=== PATIENT | female | born 1970 | race Caucasian/White ===

== ENCOUNTER 2022-05-11 08:00 | Outpatient (RCR) | payer BC, SELFPAY ==
--- NOTE | 2022-05-09 09:47 | ONC.NURNOTE ---
Authorization: User: Ada GonzalezJanie Justa Date: 04/08/22 14:35 Type: Eligibility Determination Note... Request received for authorization of [email or web address] [id number]. Patient carries [facility] as primary insurance. Per Availity no prior authorization is required. REf# [id number]
[2022-05-11 09:01] LABS: Basophils Percent Auto 1.5 % (0.0-3.0); Eosinophils Percent Auto 4.1 % (0.0-7.0); Hematocrit 40.9 % (33.0-51.0); Hemoglobin* 13.3 gm/dL (12.0-16.0); Lymphocytes Percent Auto 31.7 % (20-44); Mean Corpuscular HGB Conc 33 gm/dL (32-36); Mean Corpuscular Hemoglobin 31 pg (26-34); Mean Corpuscular Volume 95 fL (80-100); Monocytes Percent Auto 10.7 % (0.0-11.0); Platelet Count* 165 K/uL (140-440); RDW Coefficient of Variation % 12.6 % (11.5-15.5); White Blood Count* 2.71 K/uL (4.50-11.00)
[2022-05-11 09:03] LABS: Slide Review Reflex No
[2022-05-11 09:12] LABS: Albumin* 4.4 g/dL (3.3-5.0)
[2022-05-11 09:13] LABS: Chloride* 106 mmol/L (96-114); Sodium* 140 mmol/L (135-149)
[2022-05-11 09:15] LABS: Bilirubin Total* 0.4 mg/dL (0.1-1.5); Carbon Dioxide* 29 mmol/L (20-32); Creatinine* 1.1 mg/dL (0.5-1.5); Est. Creatinine Clearance* 57.52; Estimated Glomerular Filt Rate 60.08
[2022-05-11 09:16] LABS: Alanine Aminotransferase* 15 U/L (4-35); Alkaline Phosphatase* 68 U/L (40-150); Aspartate Amino Transferase* 28 U/L (12-35); Blood Urea Nitrogen* 20 mg/dL (7-30); Calcium* 9.7 mg/dL (8.4-10.6); Glucose* 72 mg/dL (60-115); Total Protein* 6.9 g/dL (6.0-8.3)
== END 2022-05-29 23:59 | disposition home or self-care (01) ==
LOC: CCIC 08:00
PROVIDERS: PCP Family Medicine; Visit Provider Physician Assistant
DX: Z51.89 Encounter for other specified aftercare (principal); C50.919 Malignant neoplasm of unspecified site of unspecified female breast; M54.50 Low back pain, unspecified
CPT/HCPCS: 36415; 80053; 85025; 97110; 97162

== ENCOUNTER 2022-06-14 14:40 | Outpatient (RCR) | payer BC, SELFPAY | END 2022-08-03 14:38 | disposition home or self-care (01) | PROVIDERS: PCP Family Medicine; Visit Provider Physician Assistant | DX: M54.50 Low back pain, unspecified (principal); Z51.89 Encounter for other specified aftercare | CPT/HCPCS: 97110; 97140 ==

== ENCOUNTER 2022-06-30 12:10 | Outpatient (CLI) | payer BC, SELFPAY ==
--- NOTE | 2022-06-30 16:15 | CRLHL7_ITS ---
For Patients: As a result of the Century Cures Act, medical imaging exams and procedure reports are released immediately into your electronic medical record. You may view this report before your referring provider. If you have questions, please contact your health care provider. INDICATION: Infiltrating lobular breast cancer TECHNIQUE: Following IV injection of FDG with uptake of 62 minutes, noncontrast CT scan followed by a PET scan were acquired along the length of body from the head to the upper thighs. Noncontrast CT was used for anatomic localization and photon attenuation correction of the PET-CT scan. - Blood glucose level: 82. - FDG dose (mCi): 13.23. COMPARISON: 12/30/2021 PET-CT. FINDINGS: Head/Neck: No abnormal tracer uptake. - Chest: No abnormal tracer uptake. - Background liver parenchyma with SUV mean of 2.3. No abnormal tracer uptake. - Musculoskeletal: No tracer avid bone lesion. - CT findings: Mastectomies with bilateral breast implants. No focal lung consolidation, pleural effusion, pneumothorax or suspicious lung mass. Last nodular opacity in the posterior right upper lobe measuring 7 mm. Uterus is absent or atrophic. Colonic diverticulosis. IMPRESSION : 1. Small ground-glass nodular opacity in the posterior right upper lobe measuring 7 mm. Recommend 6-12 month follow-up chest CT according to Fleischner guidelines. 2. Otherwise no evidence of tracer avid residual, recurrent or metastatic disease. Dictated by Tyree Barnard MD @ 07/06/2022 2:12:42 PM (Electronically Signed)
== END 2022-06-30 12:11 | disposition home or self-care (01) ==
LOC: RAD 12:11
PROVIDERS: PCP Family Medicine; Visit Provider Clinical Nurse Specialist
DX: C50.911 Malignant neoplasm of unspecified site of right female breast (principal); R91.8 Other nonspecific abnormal finding of lung field
CPT/HCPCS: 78815; A9552

== ENCOUNTER 2022-09-12 09:37 | Outpatient (CLI) | payer BC, SELFPAY ==
--- NOTE | 2022-09-12 09:15 | US_ITS ---
Final Report Patient: VANESA TINEO Facility:?[facility] Patient ID:?[id number] :?1970 Study:?US Breast Left -09/12/2022 10:02:57 AM Ordering Physician:Taya Snyder Final Report: LEFT BREAST ULTRASOUND CLINICAL HISTORY: LEFT breast lump. COMPARISON: CT-PET 06/30/2022, 08/26/2021, 12/30/2021, 11/05/2020, 03/12/2020. TECHNIQUE: Real-time ultrasound imaging of LEFT breast with imaging documentation. FINDINGS: Postop changes BILATERAL mastectomy with implant reconstruction. There is a solid hypoechoic nodule in the area of concern within the LEFT chest wall considered 5 o`clock 10 cm from the central breast. This is adjacent to the implant. In retrospect, this nodule has been present over the prior CT-PET exams but has increased in size since 2020. No abnormal metabolic activity. This likely represents scar tissue but because it is palpable a biopsy will be recommended. This measures 8 x 10 x 13 millimeters. IMPRESSION: Likely benign solid nodule adjacent to the LEFT implant measuring 8 x 10 x 13 millimeters, 5 o`clock 10 cm from the central breast. RECOMMENDATIONS: Ultrasound-guided core needle biopsy recommended. Results and recommendations were discussed with the patient at the time of the exam. BI-RADS Category 4: Suspicious A lay language report of this examination will be provided to the patient. Dictated by Tyree Ortiz MD @ 09/12/2022 1:46:54 PM maylin/Dictated by: Tyree Ortiz MD @ 09/12/2022 1:46:00 PM (Electronic Signature)
== END 2022-09-12 09:38 | disposition home or self-care (01) ==
LOC: US 09:37
PROVIDERS: PCP Family Medicine; Visit Provider Internal Medicine Hematology & Oncology
DX: N63.20 Unspecified lump in the left breast, unspecified quadrant (principal); N60.32 Fibrosclerosis of left breast
CPT/HCPCS: 76642

== ENCOUNTER 2022-09-13 09:04 | Outpatient (CLI) | payer BC, SELFPAY ==
--- NOTE | 2022-09-13 09:15 | CRLHL7_ITS ---
For Patients: As a result of the Century Cures Act, medical imaging exams and procedure reports are released immediately into your electronic medical record. You may view this report before your referring provider. If you have questions, please contact your health care provider. ULTRASOUND-GUIDED LEFT BREAST BIOPSY CLINICAL HISTORY: Status post BILATERAL mastectomy and implant reconstruction with palpable nodule adjacent to the LEFT implant. COMPARISON STUDIES: Ultrasound 09/12/2022. TECHNIQUE: Real-time ultrasound with image documentation was used for targeting the breast lesion. Core biopsy specimens were obtained using a [employer] device with a 14-gauge biopsy needle. CONSENT and TIME OUT: The procedure, risks, and alternatives were explained to the patient and a consent was signed. Mcconnell Protocol was followed including pre-procedure verification that relevant information/documentation was available, reviewed and properly matched to the patient; consent accurate and complete; and equipment and supplies available. Time Out was conducted just prior to starting procedure to verify the four required elements: patient identity, correct side/site marked (if applicable), procedure, relevant images/results properly labeled and displayed (if applicable). PROCEDURE: The patient was positioned supine on the ultrasound table. The breast was prepped with ChloraPrep. 8 cc of 1 percent lidocaine used for local anesthesia. Core samples were obtained. A sterile metal biopsy clip was placed percutaneously to tomasa the lesion position within the breast. The specimens were placed in 10% formalin and sent to the pathology department. Pressure was held on the biopsy site until all bleeding subsided. The skin incision was closed with Steri-Strips. An ice pack was positioned over the biopsy site. Post-biopsy instructions were reviewed with the patient, and a written copy was given to her. LATERALITY: LEFT breast. LESION: Hypoechoic solid nodule measuring 8 x 10 x 13 millimeters at 5 o`clock 10 cm from the nipple. SUSPICION FOR MALIGNANCY: Medium, probable scar tissue. No uptake on prior PET scans. NUMBER OF SAMPLES: 5. BIOPSY CLIP SHAPE: Ribbon. PROXIMITY OF CLIP TO TARGET: Within the lesion. IMPRESSION: Ultrasound-guided breast biopsy. When the pathology report is available, an addendum to this report will be made. 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 No evidence of malignancy. This is concordant. Surgical consultation may be useful. Dictated by Tyree Ortiz MD @ Sep 13 2022 11:45AM Signed by:?Tyree Ortiz MD @09/13/2022 12:36:20 PM (Electronically Signed)
== END 2022-09-13 09:05 | disposition home or self-care (01) ==
LOC: US 09:05
PROVIDERS: PCP Family Medicine; Visit Provider Internal Medicine Hematology & Oncology
DX: N63.20 Unspecified lump in the left breast, unspecified quadrant (principal); R92.8 Other abnormal and inconclusive findings on diagnostic imaging of breast
CPT/HCPCS: 19083; 88305; A4648; A4649

== ENCOUNTER 2022-10-05 14:30 | Outpatient (RCR) | payer BC, SELFPAY ==
[2022-06-08 09:08] LABS: Basophils Percent Auto 1.3 % (0.0-3.0); Eosinophils Percent Auto 3.7 % (0.0-7.0); Hemoglobin* 13.5 gm/dL (12.0-16.0); Immature Granulocytes Abs Auto 0.01 K/uL (0.00-0.30); Lymphocytes Percent Auto 31.6 % (20-44); Mean Corpuscular HGB Conc 33 gm/dL (32-36); Mean Corpuscular Hemoglobin 31 pg (26-34); Mean Corpuscular Volume 95 fL (80-100); Monocytes Percent Auto 6.7 % (0.0-11.0); Neutrophils Percent Auto 56.4 % (42.0-72.0); Platelet Count* 190 K/uL (140-440); RDW Coefficient of Variation % 12.4 % (11.5-15.5); Red Blood Count 4.31 m/uL (4.00-5.20); White Blood Count* 2.97 K/uL (4.50-11.00)
[2022-06-08 09:09] LABS: Albumin* 4.5 g/dL (3.3-5.0); Slide Review Reflex No
[2022-06-08 09:10] LABS: Chloride* 103 mmol/L (96-114); Potassium* 4.8 mmol/L (3.6-5.1); Sodium* 140 mmol/L (135-149)
[2022-06-08 09:12] LABS: Alkaline Phosphatase* 69 U/L (40-150); Aspartate Amino Transferase* 29 U/L (12-35); Bilirubin Total* 0.5 mg/dL (0.1-1.5); Blood Urea Nitrogen* 22 mg/dL (7-30); Carbon Dioxide* 32 mmol/L (20-32); Creatinine* 1.3 mg/dL (0.5-1.5); Estimated Glomerular Filt Rate 49 ml/min; Total Protein* 7.5 g/dL (6.0-8.3)
[2022-06-08 09:13] LABS: Alanine Aminotransferase* 14 U/L (4-35); Glucose* 89 mg/dL (60-115)
[2022-07-12 09:57] LABS: Basophils Percent Auto 0.9 % (0.0-3.0); Eosinophils Percent Auto 2.4 % (0.0-7.0); Hematocrit 39.4 % (33.0-51.0); Hemoglobin* 12.9 gm/dL (12.0-16.0); Lymphocytes Percent Auto 33.6 % (20-44); Mean Corpuscular HGB Conc 33 gm/dL (32-36); Mean Corpuscular Hemoglobin 32 pg (26-34); Mean Corpuscular Volume 97 fL (80-100); Monocytes Percent Auto 8.6 % (0.0-11.0); Neutrophils Percent Auto 54.5 % (42.0-72.0); Platelet Count* 171 K/uL (140-440); RDW Coefficient of Variation % 12.3 % (11.5-15.5); Red Blood Count 4.08 m/uL (4.00-5.20); White Blood Count* 3.39 K/uL (4.50-11.00)
[2022-07-12 10:14] LABS: Slide Review Reflex No
[2022-07-12 10:17] LABS: Albumin* 4.5 g/dL (3.3-5.0); Chloride* 103 mmol/L (96-114)
[2022-07-12 10:18] LABS: Potassium* 4.1 mmol/L (3.6-5.1); Sodium* 140 mmol/L (135-149)
[2022-07-12 10:20] LABS: Bilirubin Total* 0.4 mg/dL (0.1-1.5); Creatinine* 1.1 mg/dL (0.5-1.5); Estimated Glomerular Filt Rate 60 ml/min
[2022-07-12 10:21] LABS: Alanine Aminotransferase* 15 U/L (4-35); Alkaline Phosphatase* 65 U/L (40-150); Aspartate Amino Transferase* 31 U/L (12-35); Blood Urea Nitrogen* 17 mg/dL (7-30); Calcium* 9.8 mg/dL (8.4-10.6); Carbon Dioxide* 30 mmol/L (20-32); Glucose* 71 mg/dL (60-115); Total Protein* 7.2 g/dL (6.0-8.3)
[2022-07-13] MEDS: ZOLEDRONIC ACID 4 MG in 0.9 % SODIUM CHLORIDE 100 ml 100 ML 420 MG IVPB (09:30)
[2022-08-09 10:13] LABS: Basophils Percent Auto 0.8 % (0.0-3.0); Eosinophils Percent Auto 1.3 % (0.0-7.0); Hematocrit 40.9 % (33.0-51.0); Hemoglobin* 13.3 gm/dL (12.0-16.0); Immature Granulocytes Abs Auto 0.01 K/uL (0.00-0.30); Mean Corpuscular HGB Conc 33 gm/dL (32-36); Mean Corpuscular Hemoglobin 31 pg (26-34); Mean Corpuscular Volume 95 fL (80-100); Monocytes Percent Auto 6.8 % (0.0-11.0); Neutrophils Percent Auto 71.8 % (42.0-72.0); Platelet Count* 187 K/uL (140-440); RDW Coefficient of Variation % 12.2 % (11.5-15.5); White Blood Count* 3.84 K/uL (4.50-11.00)
[2022-08-09 10:26] LABS: Slide Review Reflex No
[2022-08-09 10:33] LABS: Albumin* 4.7 g/dL (3.3-5.0)
[2022-08-09 10:34] LABS: Chloride* 102 mmol/L (96-114); Potassium* 4.3 mmol/L (3.6-5.1); Sodium* 138 mmol/L (135-149)
[2022-08-09 10:36] LABS: Bilirubin Total* 0.5 mg/dL (0.1-1.5); Creatinine* 1.3 mg/dL (0.5-1.5); Estimated Glomerular Filt Rate 49 ml/min
[2022-08-09 10:37] LABS: Alanine Aminotransferase* 14 U/L (4-35); Alkaline Phosphatase* 72 U/L (40-150); Aspartate Amino Transferase* 29 U/L (12-35); Blood Urea Nitrogen* 19 mg/dL (7-30); Carbon Dioxide* 30 mmol/L (20-32); Glucose* 89 mg/dL (60-115); Total Protein* 7.3 g/dL (6.0-8.3)
[2022-09-07 08:40] LABS: Basophils Percent Auto 1.1 % (0.0-3.0); Eosinophils Percent Auto 2.5 % (0.0-7.0); Hematocrit 41.7 % (33.0-51.0); Hemoglobin* 13.7 gm/dL (12.0-16.0); Lymphocytes Percent Auto 23.3 % (20-44); Mean Corpuscular HGB Conc 33 gm/dL (32-36); Mean Corpuscular Hemoglobin 31 pg (26-34); Mean Corpuscular Volume 95 fL (80-100); Monocytes Percent Auto 8.4 % (0.0-11.0); Neutrophils Percent Auto 64.7 % (42.0-72.0); Platelet Count* 179 K/uL (140-440); Red Blood Count 4.38 m/uL (4.00-5.20); White Blood Count* 2.75 K/uL (4.50-11.00)
[2022-09-07 08:44] LABS: Slide Review Reflex No
[2022-09-07 08:51] LABS: Albumin* 4.6 g/dL (3.3-5.0); Chloride* 103 mmol/L (96-114); Potassium* 4.7 mmol/L (3.6-5.1); Sodium* 137 mmol/L (135-149)
[2022-09-07 08:53] LABS: Creatinine* 0.9 mg/dL (0.5-1.5); Estimated Glomerular Filt Rate 76 ml/min
[2022-09-07 08:54] LABS: Alanine Aminotransferase* 26 U/L (4-35); Alkaline Phosphatase* 66 U/L (40-150); Aspartate Amino Transferase* 38 U/L (12-35); Bilirubin Total* 0.4 mg/dL (0.1-1.5); Blood Urea Nitrogen* 17 mg/dL (7-30); Calcium* 9.1 mg/dL (8.4-10.6); Carbon Dioxide* 27 mmol/L (20-32); Glucose* 112 mg/dL (60-115); Total Protein* 7.3 g/dL (6.0-8.3)
[2022-10-05 14:52] VITALS: BP 117/70; PULSE 81; RESP 16; TEMP 36.6; O2SAT 96
[2022-10-05] MEDS: ZOLEDRONIC ACID 4 MG in 0.9 % SODIUM CHLORIDE 100 ml 100 ML 420 MG IVPB (16:00)
--- NOTE | 2022-10-05 16:35 | ONC.NURNOTE ---
1450 assessed pt on arrival while NSG asst was taking VS. Called for medication. at 1500. med still not here at 1530. Pt angry and stated she needs to be in xray at 1530. appoligized to pt and had her return after xray. pt better after returning. Lucita started IV while I scanned and then hung Zometa at 1600. Pt discharged at 1627.
== END 2022-12-05 23:59 | disposition home or self-care (01) ==
LOC: CCIC 14:30
PROVIDERS: PCP Family Medicine; Referring Provider Family Medicine; Visit Provider Internal Medicine Hematology & Oncology
DX: C50.911 Malignant neoplasm of unspecified site of right female breast (principal); Z17.0 Estrogen receptor positive status [ER+]; Z79.811 Long term (current) use of aromatase inhibitors
CPT/HCPCS: 36415; 80053; 85025; 96374; 99212; 99214; 99215; J3489

== ENCOUNTER 2022-10-05 14:40 | Outpatient (CLI) | payer BC, SELFPAY ==
--- NOTE | 2022-10-05 15:30 | CRLHL7_ITS ---
For Patients: As a result of the Century Cures Act, medical imaging exams and procedure reports are released immediately into your electronic medical record. You may view this report before your referring provider. If you have questions, please contact your health care provider. DXA BONE MINERAL DENSITY STUDY Current height (in): 67.0. Weight (lb): 150.0. Menopause age: Not provided. Ethnicity: White. Reason for exam: Breast cancer. 1. Have you had a previous hip or vertebral fracture? No. 2. Have you had any fractures during your adult life which did not result from significant trauma (e.g., auto accident)? No. 3. Did either of your parents have a hip fracture? No. 4. Do you smoke? No. 5. Have you ever taken Glucocorticoids? No. 6. Do you have rheumatoid arthritis? No. 7. Do you have secondary osteoporosis? No. 8. Do you drink 3 or more alcoholic drinks per day? No. 9. Are you being treated for osteoporosis? No. 10. Have you ever taken any of the following medications: Actonel, Evista, Fosamax, Miacalcin, Reclast, Boniva, Forteo, HRT (i.e. estrogen/hormone therapy), Protelos, Prolia, Vitamin D, Calcium, other ??? please specify. ANSWER: Yes, vitamin D, calcium, HRT. 11. Do you have any of the following medical conditions: Anorexia or bulimia, asthma or emphysema, end stage renal disease, hyperparathyroidism, any seizure disorders, cancer, inflammatory bowel diseases, hysterectomy, other ??? please specify. ANSWER: Yes, cancer, hysterectomy. 12. What was your maximum height (inches)? 67. 13. Do you perform weight bearing exercise regularly? No. 14. Do you regularly consume dairy products? Yes. 15. Do you drink caffeinated beverages? Yes. If female: 16. At what age did your period start? 12. 17. Are you premenopausal? No. 18. How many full term pregnancies have you had? 2. 19. Have you ever missed your period for more than 6 months in a row (not including or menopause)? No. TECHNIQUE: Bone mineral density study was performed using the [employer]. FINDINGS: The results of the study expressed as bone mineral density (BMD) are as follows: Lumbar spine L1 to L3: BMD: 1.100 g/cm2. T-score: 0.7. Z-score: 1.7. Neck Left: BMD: 0.754 g/cm2. T-score: -0.9. Z-score: 0.1. Right: BMD: 0.779 g/cm2. T-score: -0.6. Z-score: 0.3. Total Left: BMD: 0.961 g/cm2. T-score: 0.2. Z-score: 0.8. Right: BMD: 0.923 g/cm2. T-score: -0.2. Z-score: 0.4. IMPRESSION: Normal bone density. *Comparison exams done prior to 03/2020 were performed on different unit, [employer]. COMPARISON: Compared with scan of 04/29/2020, the bone mineral density has increased by 6.1 percent at the spine and increased by 1.5percent at the hip. Tyree Ortiz M.D. Diagnostic Radiologist [email or web address] Transcribed: 12:09 pm DW/Dictated by: Tyree Ortiz MD @ 10/06/2022 10:39:00 AM (Electronically Signed)
== END 2022-10-05 14:41 | disposition home or self-care (01) ==
LOC: RAD 14:40
PROVIDERS: PCP Family Medicine; Visit Provider Internal Medicine Hematology & Oncology
DX: C50.919 Malignant neoplasm of unspecified site of unspecified female breast (principal); Z91.89 Other specified personal risk factors, not elsewhere classified
CPT/HCPCS: 77080

== ENCOUNTER 2023-05-25 15:00 | Outpatient (RCR) | payer BC, SELFPAY | END 2023-07-22 23:59 | disposition home or self-care (01) | LOC: CCIC 15:00 | PROVIDERS: PCP Family Medicine; Referring Provider Family Medicine; Visit Provider Internal Medicine Hematology & Oncology | DX: C50.911 Malignant neoplasm of unspecified site of right female breast (principal); Z17.0 Estrogen receptor positive status [ER+]; Z90.11 Acquired absence of right breast and nipple; Z79.811 Long term (current) use of aromatase inhibitors; R23.2 Flushing | CPT/HCPCS: 99212; 99213; 99214 ==

== ENCOUNTER 2023-11-02 15:57 | Outpatient (CLI) | payer BC, SELFPAY ==
--- NOTE | 2023-11-02 16:15 | PE_ITS ---
[facility] [address] [facility] [facility] [address] Phone:?[phone] Fax:?[phone] Referring Physician Information: Lillian Cortez M.D. [address] [facility] [address] Phone:?[phone] Fax:?[phone] Patient:Dhaval Fay D.O.B:?1970 Sex:?Female Phone:?[phone] [facility] MRN:?[id number] Exam Date:?11/02/2023 EXAM: PET/CT EYES TO THIGHS, CANCER RESTAGING CLINICAL INFORMATION: Breast cancer, restaging. TECHNICAL INFORMATION: Helical acquisition of data was obtained from the orbits to the upper thighs with reconstruction of 3.75 mm thick images at 3.[address] data was used for attenuation correction. PET scanning was performed through the same anatomic range 60 minutes following administration of 12.81 mCi of 18-FDG delivered intravenously. The patient's glucose at the time of the injection was 87 mg/dL. PET, CT and PET/CT fusion images are interpreted using a computer viewing workstation. PET, CT and PET/CT fusion images were archived and saved in the patient's permanent medical record. COMPARISON: PET-CT from 06/30/2022. INTERPRETATION: Head and Neck: There are no abnormal hypermetabolic foci within the head or neck. There is physiologic uptake in the intracranial soft tissues. Chest: There are no abnormal hypermetabolic foci within the chest. Background mediastinal blood pool uptake has a maximum SUV of 2.51. No lung nodules or masses detected on this free-breathing exam. No lymphadenopathy detected. Bilateral breast reconstructions noted, with expected appearance. Abdomen and Pelvis: There are no abnormal hypermetabolic foci within the abdomen or pelvis. Background hepatic parenchymal uptake has a maximum SUV of 3.27. There is physiologic excretion of radiotracer in the urine and bowel. Skeleton, Musculature, and Integument: No abnormal hypermetabolic foci within the skeleton. No spencer osteoblastic or osteolytic disease. CONCLUSION: Stable exam. No abnormal FDG uptake to indicate metabolically active malignancy. Electronically signed on 11/06/2023 2:39:00 PM by Vick Merchant M.D.
== END 2023-11-02 15:58 | disposition home or self-care (01) ==
LOC: RAD 15:58
PROVIDERS: PCP Family Medicine; Visit Provider Internal Medicine Hematology & Oncology
DX: C50.111 Malignant neoplasm of central portion of right female breast (principal)
CPT/HCPCS: 78815; A9552

== ENCOUNTER 2024-04-15 13:45 | Outpatient (RCR) | payer BC, SELFPAY ==
[2024-01-01 14:36] LABS: Vitamin D 25 Hydroxy* 99 ng/mL (30-80)
[2024-02-05 15:10] LABS: Vitamin D 25 Hydroxy* 116 ng/mL (30-80)
[2024-04-01 16:40] LABS: Vitamin D 25 Hydroxy* 78 ng/mL (30-80)
== END 2024-05-04 23:59 | disposition home or self-care (01) ==
LOC: CCIC 13:45
PROVIDERS: Internal Medicine Hematology & Oncology; PCP Family Medicine; Referring Provider Family Medicine; Visit Provider Physician Assistant
DX: C50.911 Malignant neoplasm of unspecified site of right female breast (principal); Z17.0 Estrogen receptor positive status [ER+]; Z79.811 Long term (current) use of aromatase inhibitors; Z90.13 Acquired absence of bilateral breasts and nipples; M25.50 Pain in unspecified joint; K76.9 Liver disease, unspecified
CPT/HCPCS: 36415; 82306; 99214; 99215; G0463

== ENCOUNTER 2024-07-22 09:11 | Outpatient (RCR) | payer BC, SELFPAY ==
[2024-07-22 10:29] LABS: Vitamin D 25 Hydroxy* 61 ng/mL (30-80)
== END 2025-01-18 23:59 | disposition home or self-care (01) ==
LOC: CCIC 09:11
PROVIDERS: Clinical Nurse Specialist; PCP Family Medicine; Referring Provider Family Medicine; Visit Provider Physician Assistant
DX: C50.911 Malignant neoplasm of unspecified site of right female breast (principal); Z17.0 Estrogen receptor positive status [ER+]; Z90.11 Acquired absence of right breast and nipple; Z91.89 Other specified personal risk factors, not elsewhere classified
CPT/HCPCS: 36415; 82306; 99214; G0463

== ENCOUNTER 2025-01-29 13:17 | Outpatient (RCR) | payer BC, SELFPAY | END 2025-07-28 23:59 | disposition home or self-care (01) | LOC: CCIC 13:17 | PROVIDERS: PCP Family Medicine; Visit Provider Internal Medicine Hematology & Oncology | DX: C50.911 Malignant neoplasm of unspecified site of right female breast (principal); Z17.0 Estrogen receptor positive status [ER+]; Z79.811 Long term (current) use of aromatase inhibitors; M79.10 Myalgia, unspecified site; Z90.13 Acquired absence of bilateral breasts and nipples; K76.89 Other specified diseases of liver | CPT/HCPCS: 99214; G0463 ==

== ENCOUNTER 2025-07-16 15:13 | Outpatient (CLI) | payer BC, SELFPAY ==
--- NOTE | 2025-07-16 15:30 | CRLHL7_ITS ---
For Patients: As a result of the Century Cures Act, medical imaging exams and procedure reports are released immediately into your electronic medical record. You may view this report before your referring provider. If you have questions, please contact your health care provider. DXA BONE MINERAL DENSITY STUDY Reason for exam: Malignant neoplasm of unspecified site of unspecified female breast. Current height (in): 67. Weight (lb): 150. Menopause age: Not provided. Ethnicity: White. 1. Have you had a previous hip or vertebral fracture? No. 2. Have you had any fractures during your adult life which did not result from significant trauma (e.g., auto accident)? No. 3. Did either of your parents have a hip fracture? No. 4. Do you smoke? No. 5. Have you ever taken Glucocorticoids? No. 6. Do you have rheumatoid arthritis? No. 7. Do you have secondary osteoporosis? No. 8. Do you drink 3 or more alcoholic drinks per day? No. 9. Are you being treated for osteoporosis? No. 10. Have you ever taken any of the following medications: Actonel, Evista, Fosamax, Miacalcin, Reclast, Boniva, Forteo, HRT (i.e. estrogen/hormone therapy), Protelos, Prolia, Vitamin D, Calcium, other ??? please specify. ANSWER: Yes, Vitamin D, HRT (i.e., estrogen/hormone therapy), and calcium. 11. Do you have any of the following medical conditions: Anorexia or bulimia, asthma or emphysema, end stage renal disease, hyperparathyroidism, any seizure disorders, cancer, inflammatory bowel diseases, hysterectomy, other ??? please specify. ANSWER: Yes, cancer and hysterectomy. 12. What was your maximum height (inches)? 67. 13. Do you perform weight bearing exercise regularly? Yes. 14. Do you regularly consume dairy products? Yes. 15. Do you drink caffeinated beverages? Yes. 16. At what age did your period start? 12. 17. Are you premenopausal? No. 18. How many full-term pregnancies have you had? 2. 19. Have you ever missed your period for more than 6 months in a row (not including or menopause)? No. TECHNIQUE: Bone mineral density study was performed using the [employer]. FINDINGS: The results of the study expressed as bone mineral density (BMD) are as follows: Lumbar spine L1 to L3: BMD: 1.080 g/cm2. T-score: 0.6. Z-score: 1.7. Neck Left: BMD: 0.773 g/cm2. T-score: -0.7. Z-score: 0.4. Right: BMD: 0.783 g/cm2. T-score: -0.6. Z-score: 0.5. Total Left: BMD: 0.994 g/cm2. T-score: 0.4. Z-score: 1.2. Right: BMD: 0.955 g/cm2. T-score: 0.1. Z-score: 0.8. IMPRESSION: Normal bone density. *Comparison exams done prior to 03/2020 were performed on different unit, [facility]. COMPARISON: Compared with scan of 10/05/2022, the bone mineral density has decreased by 1.8 percent at the spine and increased by 3.4 percent at the hip. Compared with scan of 04/29/2020, the bone mineral density has increased by 6.1 percent at the spine and increased by 1.5 percent at the hip. Tyree Ortiz M.D. Diagnostic Radiologist [email or web address] EMIR/[email or web address] carlisle/Dictated by: Tyree Ortiz MD @ 07/17/2025 9:35:00 AM (Electronically Signed)
== END 2025-07-16 15:14 | disposition home or self-care (01) ==
LOC: RAD 15:14
PROVIDERS: PCP Family Medicine; Visit Provider Internal Medicine Hematology & Oncology
DX: C50.919 Malignant neoplasm of unspecified site of unspecified female breast (principal)
CPT/HCPCS: 77080